=== PATIENT | female | born 1995 | race Caucasian/White ===

== ENCOUNTER 2017-06-14 08:59 | Emergency (ER) | payer OTHER | END 2017-06-14 09:44 | disposition home or self-care (01) | LOC: ERS 08:59 | DX: H10.9 Unspecified conjunctivitis (principal); F31.9 Bipolar disorder, unspecified | CPT/HCPCS: 99283 ==

== ENCOUNTER 2017-08-30 17:28 | Emergency (ER) | payer OTHER, SELFPAY ==
[2017-08-30 18:17] LABS: Bilirubin Small (Negative); Blood, Urine Large (Negative); Glucose, Urine (Dipstick) Negative (Negative); Leukocyte Small (Negative); Nitrite Negative (Negative); Protein, Urine (Dipstick) 100 mg/dL (Neg-Trace); Specific Gravity, Urine 1.025 (1.005-1.030); pH, Urine 7.5 (5.0-9.0)
[2017-08-30 18:21] LABS: Clarity Cloudy (Clear)
[2017-08-30 18:35] LABS: Bacteria/HPF 2+ HPF (None Seen); Hyaline Casts/LPF 0-3 HYALINE CAST LPF (0-3 Hyaline); Squamous Epithelial 0-3 HPF (0-3)
== END 2017-08-30 19:59 | disposition home or self-care (01) ==
LOC: ERS 17:28
DX: N12 Tubulo-interstitial nephritis, not specified as acute or chronic (principal); F31.9 Bipolar disorder, unspecified
CPT/HCPCS: 81003; 81015; 87077; 87086; 99284

== ENCOUNTER 2017-09-02 07:27 | Emergency (ER) | payer SELFPAY ==
[2017-09-02 08:07] LABS: Bilirubin Negative (Negative); Blood, Urine Moderate (Negative); Clarity CLOUDY (Clear); Glucose, Urine (Dipstick) Negative (Negative); Leukocyte Large (Negative); Nitrite Negative (Negative); Protein, Urine (Dipstick) 30 mg/dL (Neg-Trace); Specific Gravity, Urine 1.017 (1.002-1.036)
[2017-09-02 08:12] LABS: Bacteria/HPF 2+ HPF (None Seen); Hyaline Casts/LPF 0-3 HYALINE CAST LPF (0-3 Hyaline); Pathc Cast-AUWi Flag 0.13 (0-2.49); RBC/HPF 21-50 HPF (0-3); Squamous Epithelial None Seen HPF (0-3)
[2017-09-02 08:16] LABS: Pregnancy Test - Urine (BHCG) Negative (Negative); Pregu Control Background? CLEAR/WHITE (CLR/WHITE); Pregu Control Bar Appear? YES (CONTROL BAR); Specific Gravity 1.017 (1.002-1.036)
[2017-09-02 08:25] LABS: #Lymphocytes 1.4 thou/uL (1.20-3.40); #Monocytes 0.5 thou/uL (0.11-0.59); #Neutrophils 11.3 thou/uL (1.40-6.50); %Basophils 0.3 % (0.0-1.0); %Eosinophils 0.1 % (0.0-10.0); %Lymphocytes 10.3 % (28.0-48.0); %Monocytes 3.5 % (0.0-4.0); %Neutrophils 85.8 % (31.0-61.0); Hemoglobin 13.3 g/dL (12.0-16.0); Mean Corpuscular HGB CONC 32.8 g/dL (32.0-36.0); Mean Corpuscular Hemoglobin 30.5 pg (25.0-35.0); Mean Corpuscular Volume 93.1 fl (77.0-87.0); Mean Platelet Volume 9.1 fL (7.4-10.4); Platelet Count 277 thou/uL (130-400); RBC Distribution Width 11.8 % (11.5-14.5); Red Blood Cell (RBC) Count 4.36 mill/uL (4.00-5.20); White Blood Cell (WBC) Count 13.1 thou/uL (4.8-10.8)
[2017-09-02 08:59] LABS: ALT (SGPT) 20 U/L (8-55); AST (SGOT) 19 U/L (5-30); Albumin 4.6 g/dL (3.5-5.0); Alkaline Phosphatase 53 U/L (40-150); Anion Gap 13 mmol/L (10-20); BUN (Urea Nitrogen) 12 mg/dL (8.4-21.0); Bilirubin, Total 0.6 mg/dL (0.2-1.2); Calc. Creatinine Clearance 0 mL/min (70-130); Carbon Dioxide 22 mmol/L (22-29); Chloride 106 mmol/L (98-107); Estimated GFR-MDRD Greater than 90; Globulin 3.1 g/dL (2.4-3.5); Glucose 104 mg/dL (70-105); Lipase 13 U/L (8-78); Potassium 4.5 mmol/L (3.5-5.1); Protein, Total 7.7 g/dL (6.0-8.3); Sodium 136 mmol/L (136-145)
--- NOTE | 2017-09-02 09:00 | CT ---
CONTRAST ENHANCED CT IMAGES ABDOMEN AND PELVIS: HISTORY: History of acute pyelonephritis worsening. IV contrast was given. Unfortunately, oral contrast was not given. This does decrease the sensitivity for detection of pathology. If there is concern for a ppendicitis, repeat exam with oral and IV contrast is recommended. The lung bases are unremarkable. No evidence of free intraperitoneal air is seen. The liver and spleen, gallbladder, and pancreas are unremarkable. Adrenal glands unremarkable. The kidneys demonstrate no evidence of renal masses. N o definite evidence of acute pyelonephritis is seen on CT. No dilated loops of small bowel seen. The appendix is thought to be visualized, although oral contrast was not given. No definite dilatati on or abnormality is seen within the appendix. IMPRESSION: 1. No evidence of definite renal abnormalities. 2. Difficulty in definitively visualizing the appendix due to the fact that oral contrast was not gi lacy. Therefore, acute appendicitis cannot be excluded. Correlate with clinical exam. POS: ROBERT
[2017-09-02] MEDS ORDERED: ISOVUE-370 76%-LOCM 1 ML ONE (17:03)
== END 2017-09-02 11:00 | disposition home or self-care (01) ==
LOC: ERS 07:27
DX: N12 Tubulo-interstitial nephritis, not specified as acute or chronic (principal); F31.9 Bipolar disorder, unspecified
CPT/HCPCS: 74177; 80053; 81003; 81015; 81025; 83690; 85025; 87077; 87086; 96361; 96374; J0696

== ENCOUNTER 2017-12-28 16:27 | Emergency (ER) | payer SELFPAY ==
[2017-12-28 16:50] LABS: Bilirubin Negative (Negative); Blood, Urine Negative (Negative); Clarity CLEAR (Clear); Glucose, Urine (Dipstick) Negative (Negative); Leukocyte Small (Negative); Nitrite Negative (Negative); Protein, Urine (Dipstick) Negative (Neg-Trace); Specific Gravity, Urine 1.028 (1.002-1.036); pH, Urine 6.5 (5.0-9.0)
[2017-12-28 16:53] LABS: Bacteria/HPF None Seen HPF (None Seen); Hyaline Casts/LPF 0-3 HYALINE CAST LPF (0-3 Hyaline); Pathc Cast-AUWi Flag 0.43 (0-2.49); RBC/HPF 0-3 HPF (0-3); Squamous Epithelial 0-3 HPF (0-3)
[2017-12-28 17:00] LABS: Pregnancy Test - Urine (BHCG) Negative (Negative); Pregu Control Background? CLEAR/WHITE (CLR/WHITE); Pregu Control Bar Appear? YES (CONTROL BAR); Specific Gravity 1.028 (1.002-1.036)
== END 2017-12-28 17:59 | disposition home or self-care (01) ==
LOC: ERS 16:27
DX: N39.0 Urinary tract infection, site not specified (principal); F31.9 Bipolar disorder, unspecified
CPT/HCPCS: 81003; 81015; 81025; 99284

== ENCOUNTER 2018-06-24 10:51 | Emergency (ER) | payer SELFPAY ==
[2018-06-24] MEDS ORDERED: Ibuprofen 800 MG TAB ONE (12:57)
[2018-06-24] MEDS ORDERED: Dexamethasone 4 mg/ml Vial ONE (12:57)
[2018-06-24] MEDS ORDERED: Bicillin LA 2.4 MILL.UNITS/4 ML SYRINGE ONE (12:57)
== END 2018-06-24 13:29 | disposition home or self-care (01) ==
LOC: ERS 10:51
DX: J02.0 Streptococcal pharyngitis (principal)
CPT/HCPCS: 87430; 96372; J0561; J1100

== ENCOUNTER 2018-10-19 08:27 | Emergency (ER) | payer SELFPAY ==
--- NOTE | 2018-10-19 09:13 | RAD ---
TWO VIEW CHEST: History: Cough. FINDINGS: The lungs appear clear. No infiltrate identified. Heart and mediastinum unremarkable. Osseous structu res are unremarkable. IMPRESSION: Unremarkable chest. POS: H
== END 2018-10-19 09:43 | disposition home or self-care (01) ==
LOC: ERS 08:27
DX: J06.9 Acute upper respiratory infection, unspecified (principal)
CPT/HCPCS: 71046; 87804

== ENCOUNTER 2019-02-14 17:14 | Emergency (ER) | payer SELFPAY ==
[2019-02-14] MEDS ORDERED: HYDROcodone/Acetaminophen 5/325 mg Tablet ONE (18:16)
== END 2019-02-14 18:30 | disposition home or self-care (01) ==
LOC: ERS 17:14
DX: K02.9 Dental caries, unspecified (principal); F17.210 Nicotine dependence, cigarettes, uncomplicated
CPT/HCPCS: 99282